=== PATIENT | female | born 1965 | race Caucasian/White ===

== ENCOUNTER 2022-08-25 09:08 | Outpatient (CLI) | payer BC, SELFPAY ==
[2022-08-25 13:49] LABS: Chloride* 108 mmol/L (96-114)
[2022-08-25 13:50] LABS: Albumin* 4.1 g/dL (3.3-5.0); Sodium* 143 mmol/L (135-149)
[2022-08-25 13:51] LABS: Potassium* 4.3 mmol/L (3.6-5.1)
[2022-08-25 13:52] LABS: Cholesterol* 209 mg/dL (90-199)
[2022-08-25 13:53] LABS: Alanine Aminotransferase* 26 U/L (4-35); Alkaline Phosphatase* 49 U/L (40-150); Aspartate Amino Transferase* 23 U/L (12-35); Bilirubin Total* 0.6 mg/dL (0.1-1.5); Blood Urea Nitrogen* 20 mg/dL (7-30); Calcium* 9.3 mg/dL (8.4-10.6); Carbon Dioxide* 30 mmol/L (20-32); Creatinine* 0.9 mg/dL (0.5-1.5); Estimated Glomerular Filt Rate 76 ml/min; Glucose* 92 mg/dL (60-115); Total Protein* 6.5 g/dL (6.0-8.3); Triglycerides* 108 mg/dL (40-149)
[2022-08-25 13:54] LABS: HDL Cholesterol* 61 mg/dL (>=50); LDL Cholesterol Calculated 126 mg/dL (<100)
[2022-08-25 14:43] LABS: Vitamin B12* 509 pg/mL (243-894)
== END 2022-08-25 09:09 | disposition home or self-care (01) ==
LOC: LKVREF 09:08
PROVIDERS: PCP Emergency Medicine; Visit Provider Emergency Medicine
DX: Z01.419 Encounter for gynecological examination (general) (routine) without abnormal findings (principal); E78.5 Hyperlipidemia, unspecified; E66.9 Obesity, unspecified; F32.A Depression, unspecified; F41.9 Anxiety disorder, unspecified
CPT/HCPCS: 80053; 80061; 82607

== ENCOUNTER 2023-02-28 14:14 | Outpatient (CLI) | payer BC, SELFPAY | END 2023-02-28 14:15 | disposition home or self-care (01) | LOC: LKVREF 14:15 | PROVIDERS: PCP Emergency Medicine; Visit Provider Emergency Medicine | DX: Z01.818 Encounter for other preprocedural examination (principal) | CPT/HCPCS: 80048 ==

== ENCOUNTER 2023-08-31 08:48 | Outpatient (CLI) | payer BC, SELFPAY | END 2023-08-31 08:49 | disposition home or self-care (01) | PROVIDERS: PCP Emergency Medicine; Visit Provider Emergency Medicine | DX: E78.2 Mixed hyperlipidemia (principal) | CPT/HCPCS: 80048; 80061 ==

== ENCOUNTER 2024-01-24 08:23 | Outpatient (CLI) | payer BC, SELFPAY | END 2024-01-24 08:24 | disposition home or self-care (01) | PROVIDERS: PCP Emergency Medicine; Visit Provider Emergency Medicine | DX: E66.8 Other obesity (principal); F32.A Depression, unspecified; E78.5 Hyperlipidemia, unspecified; Z71.3 Dietary counseling and surveillance | CPT/HCPCS: 82565; 84443 ==

== ENCOUNTER 2024-05-29 10:47 | Outpatient (CLI) | payer BC, SELFPAY ==
--- NOTE | 2024-05-29 11:15 | CRLHL7_ITS ---
For Patients: As a result of the Cures Act, medical imaging exams and procedure reports are released immediately into your electronic medical record. You may view this report before your referring provider. If you have questions, please contact your health care provider. Indication: localized swelling, mass and lump Technique: Grayscale and color Doppler ultrasound of the left axilla performed. Comparison: None Findings: No fluid collection or mass. No abnormal vascularity. No adenopathy. Impression: Negative axillary soft tissue ultrasound. Dictated by Julian Wagner MD @ 05/29/2024 12:16:57 PM (Electronically Signed)
== END 2024-05-29 10:48 | disposition home or self-care (01) ==
LOC: US 10:47
PROVIDERS: PCP Emergency Medicine; Visit Provider Emergency Medicine
DX: R22.30 Localized swelling, mass and lump, unspecified upper limb (principal)
CPT/HCPCS: 76882

== ENCOUNTER 2024-10-21 08:16 | Outpatient (CLI) | payer BC, SELFPAY | END 2024-10-21 08:17 | disposition home or self-care (01) | LOC: NFLDREF 10-24 20:54 | PROVIDERS: PCP Emergency Medicine; Referring Provider Emergency Medicine; Visit Provider Emergency Medicine | DX: R25.1 Tremor, unspecified (principal); E78.2 Mixed hyperlipidemia; G47.33 Obstructive sleep apnea (adult) (pediatric) | CPT/HCPCS: 80048; 80061 ==

== ENCOUNTER 2024-10-23 08:16 | Outpatient (CLI) | payer BC, SELFPAY | END 2024-10-23 08:17 | disposition home or self-care (01) | LOC: NFLDREF 10-28 03:01 | PROVIDERS: PCP Emergency Medicine; Referring Provider Emergency Medicine; Visit Provider Emergency Medicine | DX: R35.0 Frequency of micturition (principal); R25.1 Tremor, unspecified; G47.33 Obstructive sleep apnea (adult) (pediatric) | CPT/HCPCS: 84443; 87086 ==